=== PATIENT | female | born 1950 | race Caucasian/White ===

== ENCOUNTER 2016-10-03 10:52 | Outpatient (CLI) ==
[2016-10-03 11:12] LABS: BASOPHILS % (AUTO) 0.5 % (0.0-3.0); EOSINOPHILS # (AUTO) 0.1 K/ul (0.0-0.7); EOSINOPHILS % (AUTO) 1.6 % (0.0-7.0); HEMATOCRIT 43.6 % (37.0-47.0); HEMOGLOBIN 13.4 g/dl (12.0-16.0); IMMATURE GRANULOCYTE % (AUTO) 0.3 % (0.0-5.0); LYMPHOCYTES % (AUTO) 32.2 (10.0-50.0); MEAN CORPUSCULAR HEMOGLOBIN 28.2 pg (27.0-31.0); MEAN CORPUSCULAR HGB CONC 30.7 (31.8-35.4); MEAN CORPUSCULAR VOLUME 91.6 fl (81.0-99.0); MONOCYTES # (AUTO) 0.5 K/uL (0.4-2.0); MONOCYTES % (AUTO) 8.2 (0-10); NEUTROPHILS # (AUTO) 3.5 K/ul (2.0-6.9); NEUTROPHILS % (AUTO) 57.2; PLATELET COUNT 327 10^3/uL (140-440); RED BLOOD COUNT 4.76 10^6/ul (4.20-5.40); WHITE BLOOD COUNT 6.11 K/ul (4.6-10.2)
[2016-10-03 11:15] LABS: BILIRUBIN,URINE Negative (NEGATIVE); KETONES,URINE Negative (NEGATIVE); NITRITE,URINE Negative (NEGATIVE); PROTEIN,URINE Negative (NEGATIVE); URINE, BLOOD Negative (NEGATIVE)
[2016-10-03 11:18] LABS: ADD URINE MICROSCOPIC NO; LEUKOCYTE ESTERASE ,URINE NEGATIVE (NEGATIVE)
[2016-10-03 11:30] LABS: ALBUMIN 3.2 g/dL (3.4-5.0); ALBUMIN/GLOBULIN RATIO 0.8; ANION GAP 13.3; BILIRUBIN,TOTAL 0.45 mg/dL (0.00-1.20); BUN/CREATININE RATIO 15.95; CALCIUM 9.5 mg/dL (8.2-10.2); CHOL/HDL RATIO 3.7 (4.5-5.5); CREATININE 0.94 mg/dL (0.60-1.30); POTASSIUM 4.3 mmol/L (3.5-5.10); TOTAL PROTEIN 7.2 g/dL (5.8-8.1)
== END 2016-10-03 10:53 | disposition home or self-care (01) ==
LOC: LAB 10:52
PROVIDERS: ATTEND Family Medicine
DX: I25.10 Atherosclerotic heart disease of native coronary artery without angina pectoris (principal); I50.30 Unspecified diastolic (congestive) heart failure; E78.5 Hyperlipidemia, unspecified; E11.9 Type 2 diabetes mellitus without complications; I10 Essential (primary) hypertension; F32.9 Major depressive disorder, single episode, unspecified; Z79.899 Other long term (current) drug therapy
CPT/HCPCS: 36415; 80053; 80061; 81001; 83036; 85025

== ENCOUNTER 2016-10-27 14:31 | Outpatient (CLI) | payer OTHER ==
[2016-10-27 14:52] LABS: BASOPHILS % (AUTO) 0.2 % (0.0-3.0); EOSINOPHILS # (AUTO) 0.1 K/ul (0.0-0.7); HEMATOCRIT 42.3 % (37.0-47.0); HEMOGLOBIN 13.7 g/dl (12.0-16.0); IMMATURE GRANULOCYTE % (AUTO) 0.3 % (0.0-5.0); LYMPHOCYTES # (AUTO) 1.9 K/uL (0.60-3.4); MEAN CORPUSCULAR HEMOGLOBIN 28.9 pg (27.0-31.0); MEAN CORPUSCULAR HGB CONC 32.4 (31.8-35.4); MEAN CORPUSCULAR VOLUME 89.2 fl (81.0-99.0); MONOCYTES # (AUTO) 0.7 K/uL (0.4-2.0); MONOCYTES % (AUTO) 7.2 (0-10); NEUTROPHILS # (AUTO) 6.7 K/ul (2.0-6.9); NEUTROPHILS % (AUTO) 71.3; PLATELET COUNT 334 10^3/uL (140-440); RED BLOOD COUNT 4.74 10^6/ul (4.20-5.40); WHITE BLOOD COUNT 9.41 K/ul (4.6-10.2)
[2016-10-27 14:54] LABS: BILIRUBIN,URINE Negative (NEGATIVE); KETONES,URINE Negative (NEGATIVE); LEUKOCYTE ESTERASE ,URINE Trace (NEGATIVE); NITRITE,URINE Negative (NEGATIVE); PROTEIN,URINE Negative (NEGATIVE); URINE, BLOOD Negative (NEGATIVE)
[2016-10-27 14:55] LABS: ADD URINE MICROSCOPIC YES
[2016-10-27 15:08] LABS: FLU INTERNAL QC INTERNAL QC VALID
[2016-10-27 15:09] LABS: RAPID FLU A NEGATIVE (NEGATIVE); RAPID FLU B NEGATIVE (NEGATIVE)
--- NOTE | 2016-10-27 15:58 | DI ---
EXAM: CHEST FRONTAL AND LATERAL VIEWS HISTORY: Fatigue. COMPARISON: 11/30/2013 FINDINGS: Heart size remains within normal limits. There is at least mild aortic atherosclerosis. No consolidated pneumonia or vascular congestion. No pneumothorax or pleural fluid. Degenerative changes of the lumbar spine. IMPRESSION: No acute process identified.
--- NOTE | 2016-10-27 16:00 | CT ---
EXAM: CT sinuses/facial bones without contrast HISTORY: Headache with facial pain COMPARISON: None TECHNIQUE: Serial axial images of the facial bones/sinuses were obtained without IV contrast. Thes e were viewed in coronal, sagittal and axial planes. FINDINGS: There is mild mucosal thickening in the dependent portion of the left maxillary sinus. T he remaining paranasal sinuses are clear. There is trace fluid in the right mastoid air cells. The left mastoid air cells are clear. Ostiomeatal units are patent. There is leftward nasal septal de viation with a 0.4 cm leftward nasal septal spur. There is degenerative disease of the cervical spi ne. Soft tissues are unremarkable. IMPRESSION: 1. Mild mucosal thickening in the dependent portion of the left maxillary sinus. 2. Ostiomeatal units are patent with leftward nasal septal deviation and 8.4 cm leftward nasal sept al spur. 3. Degenerative disease of the cervical spine. 4. Trace fluid is noted in the right mastoid air cells.
== END 2016-10-27 14:32 | disposition home or self-care (01) ==
LOC: RAD 14:31
PROVIDERS: ATTEND Family Medicine
DX: R51 Headache (principal); R53.83 Other fatigue; R10.9 Unspecified abdominal pain
CPT/HCPCS: 36415; 81001; 85025; 86140; 87804

== ENCOUNTER 2016-11-02 10:13 | Outpatient (CLI) ==
--- NOTE | 2016-11-02 12:33 | MRI ---
EXAM: MRI left knee without contrast. HISTORY: Left knee pain. Constant. No left knee surgery.. TECHNIQUE: Using a local extremity coil on a high field strength magnet multiplanar multisequence M RI performed of the left knee without intravenous or intra-articular gadolinium contrast. COMPARISON: Four view plain film examination left knee 07/13/2015. FINDINGS: Within the medial compartment there is complex degenerative tear medial meniscus predomin ately involving the anterior posterior horn. Loss of hoop containment with extrusion of the medial meniscal body. There is diffuse chondrosis with cartilage denudation/ulceration throughout the weig htbearing medial compartment. Extensive subchondral bone marrow signal heterogeneity which is well marginated within the weightbearing medial femoral condyle.. Suggestive of intramedullary infarct/a vascular necrosis. Marked productive osteophyte formation. Within the lateral compartment the lateral meniscus is intact without discrete surfacing meniscal te ar. Mild lateral compartment chondrosis. No underlying subchondral edema. Marked productive osteo phyte formation. Within the patellofemoral compartment the patella seated with intact patellar attachment of the medi al and lateral patellar retinaculum. Moderate patellar chondrosis/chondromalacia patella with corre sponding disease along the trochlear groove with areas of cartilage denudation/ulceration. Marked p roductive osteophyte formation. There is patchy subchondral edema /remodeling over the inferior por tions of the trochlear groove. Marked productive osteophyte formation. Large left knee effusion. Question lipoma arborescens. Questionable sprain/partial tearing to the PCL. Question mucoid degeneration anterior cruciate ligament. Intact fibers. Component of sprain/ partial tearing may be present as well. There is however no translation of the tibia with respect t o the femur. The extensor mechanism is intact. Low grade sprain proximal medial collateral ligamen t which overall is bowed medially. The lateral collateral ligament complex intact as is the postero lateral corner. Tiny posterior joint extension.. IMPRESSION: Complex degenerative tear medial meniscus. Loss of hoop containment. Changes of markedly severe tricompartmental osteoarthrosis, medial compartment dominant. 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 Large left effusion. Question lipoma arborescens. Questionable sprain/partial tearing to the PCL. Mucoid degeneration anterior cruciate ligament. In tact fibers. Component of sprain/partial tearing may be present as well. No translation of the tib ia with respect to the femur. Low grade sprain proximal medial collateral ligament.
== END 2016-11-02 10:14 | disposition home or self-care (01) ==
LOC: RAD 10:13
PROVIDERS: ATTEND Family Medicine
DX: M25.562 Pain in left knee (principal)

== ENCOUNTER 2016-12-08 10:15 | Outpatient (RCR) ==
--- NOTE | 2016-12-06 15:04 | RS.OPPTEV2 ---
Date of Note: 12/05/16 Visit #: 1 Date of Evaluation: 12/05/16 Payer Source: MEDICARE Treatment Diagnosis: Bilateral knee Osteoarthritis, knee pain History of Condition/Mechanism of Injury:: Patient reports progressive bilateral knee pain. States left knee is worse than the right. She received an injection in the left knee, which helped for 8-9 hours. States left knee is bone on bone. Prior Level of Function.....Patient was independent with: ADL's, Self Care, Work /Vocation, Caregiving, Ambulation/Mobility, Community Integration/Access Functional Limitations: Sleep, Self Care, ADL's, Pushing, Pulling, Lifting, Sitting, Standing, Bending, Squatting, Ambulation, Community Access/Integration Current Subjective/complaints:: Patient reports she is hoping to avoid knee surgery. She is hoping to get some relief of knee pain with therapy. She does not ever use an assistive device. She reports no trouble with the hips or ankles. Sleep is interrupted at times from knee pain. States she gets stiffness in the knees and increased pain with weight bearing activities. Treatment Side (optional): Bilateral Medical History Medical History: Hypertension, Diabetes, Arthritis (knees and back) Smoking Status: Current every day smoker Hx Home Medications: Does not have list of medications. States she was given lotion/cream to put on legs for pain. Patient's Goals: Her goal is to get some relief of knee pain with therapy, and to avoid surgery. Pain Assessment - Pain Description Pain Location: bilateral knees, left worse than right Pain Description: Tightness, Dull, Aching Current Pain Intensity: 8/10 Worst Pain Intensity: 10/10 Functional Outcome Measure LE Functional Scale: 29 (29/80=63.75% impairment) - G Codes & Severity Modifier G Codes & Modifier: Mobility current CL. Mobility goal CK Source of G Code score: LE functional scale Gait - Gait Pattern General Gait Pattern Observation: Antalgic Gait Gait Comments: Patient ambulates without an assistive device with slightly less stance phase on the left LE compared to the right. - Left Knee ROM Left Knee Extension: -2 from full extension Left Knee Flexion: 112 (degrees AROM) Knee ROM Limitations: Soft Tissue Tightness, Pain - Right Knee ROM Right Knee Extension: full extension Right Knee Flexion: 128 (degrees AROM) Comments: Right knee demonstrates moderate crepitus with ROM. - Left Knee Strength Left Knee Extension: 4+ Good + Left Knee Flexion: 4 Good Comments: Left hip strength 5/5 throughout. - Right Knee Strength Right Knee Extension: 5 Normal Right Knee Flexion: 5 Normal Comments: Right hip generally 4/5 with flexion, abduction, extension, IR, and ER. Palpation Comments:: patient reports no significant tenderness with palpation to either knee joint. Sensation - Sensation Right Lower Extremity: Intact/Normal Left Lower Extremity: Intact/Normal Additional Comments: Additional Comments: SLR bilaterally 50-55 degrees in supine. Interventions - Exercise/Activities/Manual Therapy Exercises/Activities: Patient instructed in HEP of SLR's, pillow squeeze, and SAQ's. Manual Therapy: NA HOME EXERCISE PROGRAM: SLR's, pillow squeeze, and SAQ's - Charges Total Direct Minutes: 45 mins Total Treatment Time: 45 mins Procedures billed for this date of service:: EVAL Assessment Assessment: Patient presents to therapy with diagnosis of bilateral knee Osteoarthritis. She reports knee pain with weight bearing activities. Demonstrates weakness of the right hip and left knee. Right knee presents greater crepitus than the left knee joint. She demonstrates potential to benefit from hip and knee strengthening exercises for bilateral LE's, to gain some relief of knee pain with activity. Patient Education: Education of diagnosis, Body/Joint mechanics, Home Exercise Program, Home Safety, Activity Modification, Education of Plan of Care Rehab Potential: Good Short Term Goals Goal #1: Patient independent and compliant with basic HEP. Goal to be met by: 12/13/16 Goal #2: AROM right knee flexion 118 degrees. Goal to be met by: 12/13/16 [employer] Goals Goal #1: Patient independent in progressive HEP. Goal to be met by: 12/20/16 Plan - Treatment to be Provided Procedures: Therapeutic Exercises, Therapeutic Activity, Patient Education Modalities: No Modalities - Treatment Plan Frequency: 2 X week Duration: 2 weeks ORDER # VISITS AND/OR THROUGH DATE: 12/20/16 - Treatment Code (1) Knee pain Qualifiers: Laterality: bilateral Chronicity: chronic Qualified Description: Chronic pain of both knees Qualifier Code(s): (M25.561) Pain in right knee , (M25.562) Pain in left knee, (G89.29) Other chronic pain (2) Osteoarthritis Qualifiers: Osteoarthritis location: knee Osteoarthritis type: primary Laterality: bilateral Qualified Description: Primary osteoarthritis of both knees Qualifier Code(s): (M17.0) Bilateral primary osteoarthritis of knee
--- NOTE | 2016-12-08 10:59 | RS.OPPTDN ---
Subjective Date of Note: 12/08/16 Visit #: 2 Date of Evaluation: 12/05/16 Payer Source: MEDICARE Treatment Diagnosis: Bilateral knee Osteoarthritis, knee pain Current Subjective/complaints:: Patient reports her knees "pop" alot with walking. Pain Assessment - Pain Description Pain Location: bilateral knees, left worse than right Pain Description: Tightness, Dull, Aching Current Pain Intensity: 7-8 with standing Other Comments regarding Pain:: Much less when off her feet. Interventions - Exercise/Activities/Manual Therapy Exercises/Activities: 40 mins. total,HEP of ankle pumps,quad sets,heelslides, hip abd/adduction,SAQ's, SLR's,3/10 -15 reps. each today. Total minutes of Exercise: 40 Manual Therapy: NA Total minutes of Manual Therapy: 0 HOME EXERCISE PROGRAM: SLR's,SAQ's, pillow squeeze, and SAQ's,hip abd /add, heelslides. - Charges Total Direct Minutes: 40 Total Treatment Time: 40 Procedures billed for this date of service:: ex 3 Assessment: Patient reports her knees actually feel better while doing exercises today.She has crepitus present with heelslides and SAQ's.She needs cues to control the speed of movement ,especially with SLR's. Patient Education: Education of diagnosis, Body/Joint mechanics, Home Exercise Program, Home Safety, Activity Modification, Education of Plan of Care Patient demonstrates compliance with HEP?: Yes Short Term Goals Goal #1: Patient independent and compliant with basic HEP. Goal to be met by: 12/13/16 Progress towards Goal:: Progressing Goal #2: AROM right knee flexion 118 degrees. Goal to be met by: 12/13/16 Progress towards Goal:: Progressing Half-Way Goals Goal #1: Patient independent in progressive HEP. Goal to be met by: 12/20/16 Plan PLAN OF CARE EXPIRES ON:: 12/20/16 ORDER # VISITS AND/OR THROUGH DATE: 12/20/16 PLAN: Continue Plan of Care
--- NOTE | 2016-12-21 16:45 | RS.CSNOTE ---
PT Case Note Date of Note: 12/20/16 Title of document: Case Note Note: S--Patient reports her R knee does not pop or hurt any longer. She c/o L knee pain at the distal patella and at the joint line and continues to pop mostly with ambulation. She says the L knee pain is constant, but also increases with activity level. She says she has performed HEP and feels it has helped, but also believes she will be scheduled for TKR soon. She mentions she would like to hold off until summer so that she is off from work. O--Patient was seen to review HEP and progress original with tbands and to standing therex. We went through all and performed correctly and with only general muscle fatigue. SLR was modified to only 5 reps, 2 sets due to such fatigue. Measurements taken. A--Patient's L knee Actively is 119 degrees, 121 passive and limited by pain. R knee is 127 Actively, no pain. Both knees are ~-3 to - 4 degrees. P--Patient's dates are expiring today and no further treatment was ordered by MD. She attended eval and 2 visits counting today. She was encouraged to continue performing HEP 2-3 times per day and follow up with MD at her scheduled appt. Gcodes remained unchanged. Score 29/80 or ~64% impairment as she has improved on the R knee, but score contains both knees. Charges this date is EX-1
--- NOTE | 2017-01-20 14:35 | RS.QUICKDC ---
Discharge from PT Date of Discharge: 12/20/16 Number of Visits: 3 Reason for Discharge: Patient reports her R knee does not pop or hurt any longer. She c/o L knee pain at the distal patella and at the joint line and continues to pop mostly with ambulation. She says the L knee pain is constant, but also increases with activity level. She says she has performed HEP and feels it has helped, but also believes she will be scheduled for TKR soon. She mentions she would like to hold off until summer so that she is off from work. Patient was seen to review HEP and progress original with tbands and to standing therex. We went through all and performed correctly and with only general muscle fatigue. SLR was modified to only 5 reps, 2 sets due to such fatigue. Patient's L knee Actively is 119 degrees, 121 passive and limited by pain. R knee is 127 Actively, no pain. Both knees are ~-3 to -4 degrees. Patient's dates are expiring today and no further treatment was ordered by MD. She attended eval and 2 visits counting today. She was encouraged to continue performing HEP 2-3 times per day and follow up with MD at her scheduled appt. Gcodes remained unchanged. Score 29/80 or ~64% impairment as she has improved on the R knee, but score contains both knees. G codes: Mobility goal CK, Mobility D/C CL
== END 2016-12-30 ==
PROVIDERS: ATTEND Orthopaedic Surgery
DX: M17.11 Unilateral primary osteoarthritis, right knee (principal); M17.12 Unilateral primary osteoarthritis, left knee

== ENCOUNTER 2017-01-02 09:57 | Outpatient (CLI) ==
--- NOTE | 2017-01-04 07:27 | MAMMO ---
EXAM: Digital screening mammogram HISTORY: Screening mammogram COMPARISON: Mammogram 07/12/2011 and 07/19/2013 FINDINGS: Bilateral CC and MLO views of the breasts were performed digitally and demonstrate scatte red fibroglandular breast density (25 - 50%). There is no abnormal nodule or calcification. Stable b enign bilateral calcifications are present. There are stable bilateral breast nodules unchanged sin 2010. There is no significant interval change. IMPRESSION: That no suspicious nodule or calcification RECOMMENDATION: Annual screening mammogram BIRADS category II: Benign findings
== END 2017-01-02 09:58 | disposition home or self-care (01) ==
LOC: RAD 09:57
PROVIDERS: ATTEND Family Medicine
DX: Z12.31 Encounter for screening mammogram for malignant neoplasm of breast (principal)

== ENCOUNTER 2017-02-08 00:01 | Outpatient (POV) | END 2017-02-08 00:02 | LOC: OUTPT 00:01 | PROVIDERS: ATTEND Otolaryngology | DX: H72.91 Unspecified perforation of tympanic membrane, right ear (principal); H91.91 Unspecified hearing loss, right ear | CPT/HCPCS: 92557; 92567 ==

== ENCOUNTER 2017-03-30 13:54 | Outpatient (CLI) ==
--- NOTE | 2017-03-30 15:22 | US ---
EXAM: Renal ultrasound HISTORY: Stage III chronic kidney disease. TECHNIQUE: Zhou scale and color Doppler imaging of the kidneys was performed. FINDINGS: The right kidney measures 9 cm in length. There is no hydronephrosis. The renal parench ymal echotexture appears normal. The left kidney measures 9.0 cm in length. There is no hydronephrosis. The renal parenchymal echote xture appears normal. There is a small cyst seen within the left kidney measuring 5 mm. The urinary bladder was not well seen within the pelvis. IMPRESSION: There is no obstructive uropathy.
== END 2017-03-30 13:55 | disposition home or self-care (01) ==
LOC: RAD 13:54
PROVIDERS: ATTEND Internal Medicine Nephrology
DX: N18.3 Chronic kidney disease, stage 3 (moderate) (principal)
CPT/HCPCS: 76770

== ENCOUNTER → 2017-05-01 | Outpatient (RCR) ==
--- NOTE | 2017-04-25 08:46 | RS.OPPTEV2 ---
Date of Note: 04/24/17 Visit #: 1 Date of Evaluation: 04/24/17 Payer Source: MEDICARE Surgery Performed?: Yes (Left TKA) Date of Procedure: 04/18/17 Treatment Diagnosis: Left knee pain, left knee joint stiffness, s/p left TKA History of Condition/Mechanism of Injury:: Patient reports progressive left knee pain from osteoarthritis led to a TKA. Prior Level of Function.....Patient was independent with: ADL's, Self Care, Work /Vocation, Caregiving, Ambulation/Mobility, Community Integration/Access Functional Limitations: Sleep, Self Care, ADL's, Reaching, Pushing, Pulling, Lifting, Carrying, Sitting, Standing, Bending, Squatting, Ambulation, Community Access/Integration Current Subjective/complaints:: Patient reports staying in the hospital three nights following her surgery. Reports pain has not been as bad as she expected. States she has been icing the knee consistently and wear compression hose at night. She has been taking her pain medication as prescribed. She took it 30 minutes before her appointment. Reports doing well at home. She has not had any falls at home. States she has one step to get onto the front porch and always has someone to help her get up the step. She has a HEP from the hospital that she has been working on. States she uses pillows at home in bed to keep the left leg from turning out. She reports that she has been changing her dressing. Her daughter lives with her and helps her with all selfcare and ADL's. Patient states she had some trouble with her oxygen level while at the hospital. She was sent home with oxygen. Treatment Side (optional): Left Medical History Medical History: Hypertension, Diabetes, Arthritis (knees and back) Smoking Status: Current every day smoker Hx Home Medications: Does not have list of medications. States she was given lotion/cream to put on legs for pain. Pain Assessment - Pain Description Pain Location: bilateral knees, left worse than right Current Pain Intensity: 7-8 with standing Functional Outcome Measure LE Functional Scale: 0 (0/03=707% impairment) - G Codes & Severity Modifier G Codes & Modifier: Mobility current CM. Mobility goal CJ Source of G Code score: G codes based on presentation in the department. She scored the LE functional scale 0/80, but presents to be more at the 80-99% functional level. Observation - Observation Inspection: Left knee presents a light dressing over her incision. Incision is 6 inches in length and is clean and free of drainage. Appears to have been closed with dermabond and probably internal stitches. Girth Measurement Lower: Left LE: Malleoli 25 cm, inferior incision 39.25 cm, superior incision 48 cm Gait - Gait Pattern Gait Comments: Patient ambulates with a rolling walker with supervision. She demonstrates decreased left knee flexion during swing phase. Exhibits decreased stance time on the left LE and decreased stride length. Also demonstrates minimal heelstrike on the left LE. - Left Knee ROM Left Knee Extension: -3 degrees from full extension Left Knee Flexion: 73 (degrees AROM) Knee ROM Limitations: Soft Tissue Tightness, Pain - Right Knee ROM Right Knee Extension: full extension Right Knee Flexion: 128 (degrees AROM) - Left Knee Strength Left Knee Extension: 4 Good Left Knee Flexion: 4 Good - Right Knee Strength Right Knee Extension: 4+ Good + Right Knee Flexion: 4+ Good + Palpation Comments:: Sensation to light touch and deep pressure slightly impaired to bilateral lower legs and feet. Sensation - Sensation Right Lower Extremity: Intact/Normal Left Lower Extremity: Intact/Normal - Heat/Cryotherapy Treatment: Cryotherapy (X 10 mins following evaluation) Interventions - Exercise/Activities/Manual Therapy Exercises/Activities: Patient given handout of exercises for TKA and given instructions for homemade ice packs. Advised to continue icing the knee consistently to reduce swelling and help manage her pain. Manual Therapy: NA HOME EXERCISE PROGRAM: AP's, quad sets, heel slides, standing HS curls, SAQ's. - Charges Total Direct Minutes: 55 mins Total Treatment Time: 55 mins Procedures billed for this date of service:: KATIA REN Assessment Assessment: Patient presents to therapy with a diagnosis of Primary OA of the left knee, knee pain. She presents six days s/p left TKA. She reports limited ability to perform selfcare, ADL's, drive, or ambulate. Her daughter is currently having to help her with daily care/activities. She presents with limited functional left knee AROM and strength. She will benefit from exercises and modalities to reduce her swelling and pain, and help her regain functional AROM to return to her prior level of function. Patient Education: Education of diagnosis, Body/Joint mechanics, Home Exercise Program, Home Safety, Activity Modification, Education of Plan of Care Rehab Potential: Good Short Term Goals Goal #1: Patient independent and compliant with initial HEP. Goal to be met by: 05/08/17 Goal #2: Left knee active flexion to 90 degrees. Goal to be met by: 05/08/17 Goal #3: Left knee to demonstrate good quad control. Goal to be met by: 05/08/17 Goal #4: Pt to demonstrate good heelstrike consistently with amb. in department. Goal to be met by: 05/08/17 Skilled Nursing Goals Goal #1: Pt knows HEP and to continue ex's to maintain functional level at D/C. Goal to be met by: 06/13/17 Goal #2: Score on LE functional scale <39% impaired. Goal to be met by: 06/13/17 Goal #3: Pt able to amb. community distances w/o a device and min. gait deviations. Goal to be met by: 06/13/17 Goal #4: Left knee AROM WFL's for patient to perform all selfcare/ADL's. Goal to be met by: 06/13/17 Plan - Treatment to be Provided Procedures: Therapeutic Exercises, Therapeutic Activity, Gait Training, Patient Education Modalities: Electrical Stimulation, Cryotherapy - Treatment Plan Frequency: 3 X week Duration: 6 weeks ORDER # VISITS AND/OR THROUGH DATE: 06/13/17 - Treatment Code (1) Knee stiffness Qualifiers: Laterality: left Qualified Description: Knee stiffness, left Qualifier Code(s): (M25.662) Stiffness of left knee, not elsewhere classified (2) Knee pain Qualifiers: Chronicity: acute Laterality: left Qualified Description: Acute pain of left knee Qualifier Code(s): (M25.562) Pain in left knee (3) Aftercare following joint replacement surgery Qualifiers: Joint replacement surgery site: knee Laterality: left Qualified Description: Aftercare following left knee joint replacement surgery Qualifier Code(s): (Z47.1) Aftercare following joint replacement surgery, ( Z96.652) Presence of left artificial knee joint
--- NOTE | 2017-04-26 16:12 | RS.OPPTDN ---
Subjective Date of Note: 04/26/17 Visit #: 2 Date of Evaluation: 04/24/17 Payer Source: MEDICARE Treatment Diagnosis: Left knee pain, left knee joint stiffness, s/p left TKA Current Subjective/complaints:: Patient reports working on he HEP as instructed. States she is using ice for swelling. Pain Assessment - Pain Description Pain Location: bilateral knees, left worse than right Current Pain Intensity: moderate - Treatment Modality: Electrical Stim Unattended Parameters/Method Applied: [id number] HVGC to 190p.v. with 4 large pads cross current to the left knee joint with CP prior to EX. Patient Position: Supine - Heat/Cryotherapy Treatment: Cryotherapy ([id number] with Estim ) Interventions - Exercise/Activities/Manual Therapy Exercises/Activities: QS, ham sets, heel slides, and SLR, all 2s/10reps. Red theraband for resistive ankle df, 3s/10reps. Isometric hip add with ball. PROM left knee flexion and extension. In sitting, alt hip flexion and LAQ. Sitting on high mat table, PROM left knee flexion and extension. Red theraband for resistive ham curl 3s/10reps. Isometric knee flexion and extension. Total minutes of Exercise: 30mins Manual Therapy: NA HOME EXERCISE PROGRAM: AP's, quad sets, heel slides, standing HS curls, SAQ's. SLR. Heel slides in sitting with passive stretching. - Objective Findings Observations,measurements,etc.: Demos improved quad control with quad sets. - Charges Total Direct Minutes: 30mins Total Treatment Time: 50mins Procedures billed for this date of service:: CP, Estim unattended, EX2 Assessment: Patient tolerates increase in mat exercise today. She is motivated to work on HEP and progress. Patient Education: Body/Joint mechanics, Home Exercise Program, Home Safety, Activity Modification Patient demonstrates compliance with HEP?: Yes Short Term Goals Goal #1: Patient independent and compliant with initial HEP. Goal to be met by: 05/08/17 Progress towards Goal:: Progressing Goal #2: Left knee active flexion to 90 degrees. Goal to be met by: 05/08/17 Progress towards Goal:: Progressing Comments:: Passive to 90 degrees or slightly better. Goal #3: Left knee to demonstrate good quad control. Goal to be met by: 05/08/17 Progress towards Goal:: Progressing Goal #4: Pt to demonstrate good heelstrike consistently with amb. in department. Goal to be met by: 05/08/17 Senior Information Security Engineer Goals Goal #1: Pt knows HEP and to continue ex's to maintain functional level at D/C. Goal to be met by: 06/13/17 Goal #2: Score on LE functional scale <39% impaired. Goal to be met by: 06/13/17 Goal #3: Pt able to amb. community distances w/o a device and min. gait deviations. Goal to be met by: 06/13/17 Goal #4: Left knee AROM WFL's for patient to perform all selfcare/ADL's. Goal to be met by: 06/13/17 Plan PLAN OF CARE EXPIRES ON:: 06/13/17 ORDER # VISITS AND/OR THROUGH DATE: 06/13/17 PLAN: Continue Plan of Care (Continue modalites and exericse to reduce pain and swelling, and increase functional activity level.)
--- NOTE | 2017-04-28 15:56 | RS.OPPTDN ---
Subjective Date of Note: 04/28/17 Visit #: 3 Date of Evaluation: 04/24/17 Payer Source: MEDICARE Treatment Diagnosis: Left knee pain, left knee joint stiffness, s/p left TKA Current Subjective/complaints:: Patient reports doing better each day. States she is working on HEP. Pain Assessment - Pain Description Pain Location: bilateral knees, left worse than right Current Pain Intensity: moderate - Treatment Modality: Electrical Stim Unattended Parameters/Method Applied: [id number] HVGC to 200p.v. to the left knee joint 4 pad cross current with cold pack prior to EX. Patient in supine. Patient Position: Supine - Heat/Cryotherapy Treatment: Cryotherapy ([id number] with Estim ) Interventions - Exercise/Activities/Manual Therapy Exercises/Activities: QS, ham sets, heel slides, and SLR, all 2s/10reps. Red theraband for resistive ankle df and ham curl, 2s/10reps. Isometric hip add with ball. PROM left knee flexion and extension. In sitting, alt hip flexion and LAQ. Sitting on high mat table, PROM left knee flexion and extension. Red theraband for resistive ham curl and knee extension, 3s/10reps each. Isometric knee flexion and extension. Total minutes of Exercise: 30mins Manual Therapy: NA HOME EXERCISE PROGRAM: AP's, quad sets, heel slides, standing HS curls, SAQ's. SLR. Heel slides in sitting with passive stretching. - Objective Findings Observations,measurements,etc.: Patient demos full active left knee extension and passive left knee flexion to 99 degrees. - Charges Total Direct Minutes: 30mins Total Treatment Time: 50mins Procedures billed for this date of service:: CP, Estim unattended, EX2 Assessment: Patient progressing well with ROM and with strengthening exercises. Patient Education: Body/Joint mechanics, Home Exercise Program Patient demonstrates compliance with HEP?: Yes Short Term Goals Goal #1: Patient independent and compliant with initial HEP. Goal to be met by: 05/08/17 Progress towards Goal:: Progressing Goal #2: Left knee active flexion to 90 degrees. Goal to be met by: 05/08/17 (100%) Progress towards Goal:: Met Goal #3: Left knee to demonstrate good quad control. Goal to be met by: 05/08/17 (50%) Progress towards Goal:: Progressing Goal #4: Pt to demonstrate good heelstrike consistently with amb. in department. Goal to be met by: 05/08/17 Progress towards Goal:: Progressing Gas Operations Superintendent Goals Goal #1: Pt knows HEP and to continue ex's to maintain functional level at D/C. Goal to be met by: 06/13/17 Goal #2: Score on LE functional scale <39% impaired. Goal to be met by: 06/13/17 Goal #3: Pt able to amb. community distances w/o a device and min. gait deviations. Goal to be met by: 06/13/17 Goal #4: Left knee AROM WFL's for patient to perform all selfcare/ADL's. Goal to be met by: 06/13/17 Plan PLAN OF CARE EXPIRES ON:: 06/13/17 ORDER # VISITS AND/OR THROUGH DATE: 06/13/17 PLAN: Continue Plan of Care (Continue modalities and progress exercise to reduce pain and increase functional activity level.)
--- NOTE | 2017-05-01 15:36 | RS.OPPTDN ---
Subjective Date of Note: 05/01/17 Visit #: 4 Date of Evaluation: 04/24/17 Payer Source: MEDICARE Treatment Diagnosis: Left knee pain, left knee joint stiffness, s/p left TKA Current Subjective/complaints:: Patient reports she is consistently working on HEP, and feels her ROM and walking are better. Pain Assessment - Pain Description Pain Location: bilateral knees, left worse than right Current Pain Intensity: moderate - Treatment Modality: Electrical Stim Unattended Parameters/Method Applied: [id number] HVGC to 200p.v. 4 large pads cross current to the left knee with CP prior to EX. Patient Position: Supine - Heat/Cryotherapy Treatment: Cryotherapy ([id number] with Estim ) Interventions - Exercise/Activities/Manual Therapy Exercises/Activities: QS, ham sets, heel slides, and SLR, all 2s/10reps. Red theraband for resistive ankle df and ham curl, 2s/10reps. Isometric hip add with ball. PROM left knee flexion and extension. Assisted patient onto stationary bike and progressed to full revolutions. Total minutes of Exercise: 24mins Manual Therapy: NA HOME EXERCISE PROGRAM: AP's, quad sets, heel slides, standing HS curls, SAQ's. SLR. Heel slides in sitting with passive stretching. - Charges Total Direct Minutes: 24mins Total Treatment Time: 44mins Procedures billed for this date of service:: CP, Estim unattended, EX2 Assessment: Patient progressing with ROM and with strengthening exercises. Patient Education: Home Exercise Program Patient demonstrates compliance with HEP?: Yes Short Term Goals Goal #1: Patient independent and compliant with initial HEP. Goal to be met by: 05/08/17 Progress towards Goal:: Progressing Goal #2: Left knee active flexion to 90 degrees. Goal to be met by: 05/08/17 (100%) Progress towards Goal:: Met Goal #3: Left knee to demonstrate good quad control. Goal to be met by: 05/08/17 (70%) Progress towards Goal:: Progressing Goal #4: Pt to demonstrate good heelstrike consistently with amb. in department. Goal to be met by: 05/08/17 (50%) Progress towards Goal:: Progressing Crude Oil Treater Goals Goal #1: Pt knows HEP and to continue ex's to maintain functional level at D/C. Goal to be met by: 06/13/17 Goal #2: Score on LE functional scale <39% impaired. Goal to be met by: 06/13/17 Goal #3: Pt able to amb. community distances w/o a device and min. gait deviations. Goal to be met by: 06/13/17 Goal #4: Left knee AROM WFL's for patient to perform all selfcare/ADL's. Goal to be met by: 06/13/17 Plan PLAN OF CARE EXPIRES ON:: 06/13/17 ORDER # VISITS AND/OR THROUGH DATE: 06/13/17 PLAN: Continue Plan of Care
== END ==
PROVIDERS: ATTEND Orthopaedic Surgery
DX: M17.12 Unilateral primary osteoarthritis, left knee (principal)

== ENCOUNTER 2017-05-23 11:00 | Outpatient (RCR) ==
--- NOTE | 2017-05-03 15:54 | RS.OPPTDN ---
Subjective Date of Note: 05/03/17 Visit #: 5 Date of Evaluation: 04/24/17 Payer Source: MEDICARE Treatment Diagnosis: Left knee pain, left knee joint stiffness, s/p left TKA Current Subjective/complaints:: Patient reports doing better each day. States she continues to walk with RW for safety in the community. Pain Assessment - Pain Description Pain Location: bilateral knees, left worse than right Current Pain Intensity: moderate - Treatment Modality: Electrical Stim Unattended Parameters/Method Applied: [id number] HVGC to 160p.v. with 4 large pads, cross current, to the left knee joint with CP prior to EX. Patient Position: Supine - Heat/Cryotherapy Treatment: Cryotherapy ([id number] with Estim ) Interventions - Exercise/Activities/Manual Therapy Exercises/Activities: QS, ham sets, heel slides, and SLR, all 3s/10reps. Green theraband for resistive ankle df and ham curl, 2s/10reps. SAQ 3#. Isometric hip add with ball. PROM left knee flexion and extension. In sitting, green theraband for resistive knee flexion and extension. Isometric knee flexion and extension. Assisted patient onto stationary bike and progressed to full revolutions. Total minutes of Exercise: 30mins (35mins) Manual Therapy: NA HOME EXERCISE PROGRAM: AP's, quad sets, heel slides, standing HS curls, SAQ's. SLR. Heel slides in sitting with passive stretching. - Charges Total Direct Minutes: 30mins Total Treatment Time: 55mins Procedures billed for this date of service:: CP, Estim unattended, EX2 Assessment: Patient progressing well with strength and ROM. Patient Education: Home Exercise Program Patient demonstrates compliance with HEP?: Yes Short Term Goals Goal #1: Patient independent and compliant with initial HEP. Goal to be met by: 05/08/17 Progress towards Goal:: Met Goal #2: Left knee active flexion to 90 degrees. Goal to be met by: 05/08/17 (100%) Progress towards Goal:: Met Goal #3: Left knee to demonstrate good quad control. Goal to be met by: 05/08/17 (70%) Progress towards Goal:: Progressing Goal #4: Pt to demonstrate good heelstrike consistently with amb. in department. Goal to be met by: 05/08/17 (50%) Progress towards Goal:: Progressing Wood Treating Inspector Goals Goal #1: Pt knows HEP and to continue ex's to maintain functional level at D/C. Goal to be met by: 06/13/17 Goal #2: Score on LE functional scale <39% impaired. Goal to be met by: 06/13/17 Goal #3: Pt able to amb. community distances w/o a device and min. gait deviations. Goal to be met by: 06/13/17 Goal #4: Left knee AROM WFL's for patient to perform all selfcare/ADL's. Goal to be met by: 06/13/17 Plan PLAN OF CARE EXPIRES ON:: 06/13/17 ORDER # VISITS AND/OR THROUGH DATE: 06/13/17 PLAN: Continue Plan of Care
--- NOTE | 2017-05-05 15:43 | RS.OPPTDN ---
Subjective Date of Note: 05/05/17 Visit #: 6 Date of Evaluation: 04/24/17 Payer Source: MEDICARE Treatment Diagnosis: Left knee pain, left knee joint stiffness, s/p left TKA Current Subjective/complaints:: Patient reports doing better . States she is walking around her home without AD, and uses RW in community. Pain Assessment - Pain Description Pain Location: bilateral knees, left worse than right Current Pain Intensity: moderate - Treatment Modality: Electrical Stim Unattended Parameters/Method Applied: [id number] HVGC to 200p.v. with 4 large pads with CP to the left knee prior to EX. Patient Position: Supine - Heat/Cryotherapy Treatment: Cryotherapy ([id number] with Estim ) Interventions - Exercise/Activities/Manual Therapy Exercises/Activities: QS, ham sets, heel slides, and SLR, all 3s/10reps. Green theraband for resistive ankle df and ham curl, 2s/10reps. SAQ 3#. Isometric hip add with ball. PROM left knee flexion and extension. Red theraband for hip add and abd in hook-lying. In sitting, green theraband for resistive knee flexion and extension. Isometric knee flexion and extension. Assisted patient onto stationary bike and progressed to full revolutions, 4mins not included in direct time. Total minutes of Exercise: 25mins Manual Therapy: NA HOME EXERCISE PROGRAM: AP's, quad sets, heel slides, standing HS curls, SAQ's. SLR. Heel slides in sitting with passive stretching. - Objective Findings Observations,measurements,etc.: Na benitez 107 degrees flexion while on stationary bike. - Charges Total Direct Minutes: 29mins Total Treatment Time: 49mins Procedures billed for this date of service:: CP, Estim unattended, EX2 Assessment: Patient progressing well with exercise, ambulation, and ROM of the left knee. Patient Education: Home Exercise Program, Home Safety, Activity Modification Patient demonstrates compliance with HEP?: Yes Short Term Goals Goal #1: Patient independent and compliant with initial HEP. Goal to be met by: 05/08/17 Progress towards Goal:: Met Goal #2: Left knee active flexion to 90 degrees. Goal to be met by: 05/08/17 (100%) Progress towards Goal:: Met Goal #3: Left knee to demonstrate good quad control. Goal to be met by: 05/08/17 (70%) Progress towards Goal:: Progressing Goal #4: Pt to demonstrate good heelstrike consistently with amb. in department. Goal to be met by: 05/08/17 (70%) Progress towards Goal:: Progressing Fpc Goals Goal #1: Pt knows HEP and to continue ex's to maintain functional level at D/C. Goal to be met by: 06/13/17 Goal #2: Score on LE functional scale <39% impaired. Goal to be met by: 06/13/17 Goal #3: Pt able to amb. community distances w/o a device and min. gait deviations. Goal to be met by: 06/13/17 Progress towards goal: Progressing Goal #4: Left knee AROM WFL's for patient to perform all selfcare/ADL's. Goal to be met by: 06/13/17 Plan PLAN OF CARE EXPIRES ON:: 06/13/17 ORDER # VISITS AND/OR THROUGH DATE: 06/13/17 PLAN: Continue Plan of Care
--- NOTE | 2017-05-08 16:01 | RS.OPPTDN ---
Subjective Date of Note: 05/08/17 Visit #: 7 Date of Evaluation: 04/24/17 Payer Source: MEDICARE Treatment Diagnosis: Left knee pain, left knee joint stiffness, s/p left TKA Current Subjective/complaints:: Patient reports trying to progress to cane. States she had some increased swelling this morning, but she feels she is progressing well. Pain Assessment - Pain Description Pain Location: bilateral knees, left worse than right Current Pain Intensity: moderate - Treatment Modality: Electrical Stim Unattended Parameters/Method Applied: [id number] HVGC to 200p.v. with 4 large pads to the left knee with CP prior to EX. Patient Position: Supine - Heat/Cryotherapy Treatment: Cryotherapy ([id number] with Estim ) Interventions - Exercise/Activities/Manual Therapy Exercises/Activities: QS, ham sets, heel slides, and SLR, all 3s/10reps. Green theraband for resistive ankle df and ham curl, 2s/10reps. SAQ 4#. Isometric hip add with ball. PROM left knee flexion and extension. Green theraband for hip add and abd in hook-lying. Red theraband for hip add and abd with knee in full extension. In sitting, green theraband for resistive knee flexion and extension. Isometric knee flexion and extension. Stationary bike x4mins forward and 1min backward, not included in direct time. Total minutes of Exercise: 25mins Manual Therapy: NA HOME EXERCISE PROGRAM: AP's, quad sets, heel slides, standing HS curls, SAQ's. SLR. Heel slides in sitting with passive stretching. - Charges Total Direct Minutes: 25mins Total Treatment Time: 50mins Procedures billed for this date of service:: CP, Estim unattended, EX2 Assessment: Patient proressing well with ambulation and with exercise. Patient Education: Home Exercise Program, Home Safety, Activity Modification Patient demonstrates compliance with HEP?: Yes Short Term Goals Goal #1: Patient independent and compliant with initial HEP. Goal to be met by: 05/08/17 Progress towards Goal:: Met Goal #2: Left knee active flexion to 90 degrees. Goal to be met by: 05/08/17 (100%) Progress towards Goal:: Met Goal #3: Left knee to demonstrate good quad control. Goal to be met by: 05/08/17 (70%) Progress towards Goal:: Progressing Goal #4: Pt to demonstrate good heelstrike consistently with amb. in department. Goal to be met by: 05/08/17 (70%) Progress towards Goal:: Progressing Fdc Goals Goal #1: Pt knows HEP and to continue ex's to maintain functional level at D/C. Goal to be met by: 06/13/17 Goal #2: Score on LE functional scale <39% impaired. Goal to be met by: 06/13/17 Goal #3: Pt able to amb. community distances w/o a device and min. gait deviations. Goal to be met by: 06/13/17 Progress towards goal: Progressing Goal #4: Left knee AROM WFL's for patient to perform all selfcare/ADL's. Goal to be met by: 06/13/17 Plan PLAN OF CARE EXPIRES ON:: 06/13/17 ORDER # VISITS AND/OR THROUGH DATE: 06/13/17 PLAN: Progress Exercises
--- NOTE | 2017-05-10 16:07 | RS.OPPTDN ---
Subjective Date of Note: 05/10/17 Visit #: 8 Date of Evaluation: 04/24/17 Payer Source: MEDICARE Treatment Diagnosis: Left knee pain, left knee joint stiffness, s/p left TKA Current Subjective/complaints:: Patient reports continued improvement in walking. States she continues to work on light activities at home, as she has recently moved. States she takes frequent breaks. She is now using cane when going out in the community. Pain Assessment - Pain Description Pain Location: bilateral knees, left worse than right Current Pain Intensity: moderate Interventions - Exercise/Activities/Manual Therapy Exercises/Activities: Stationary bike x3mins, not included in direct time. QS, ham sets, heel slides, SLR, and hip abduction, all 2s/10reps. Green theraband for resistive ankle df and ham curl, 2s/10reps. SAQ 4#. Isometric hip add with ball. PROM left knee flexion and extension. Green theraband for hip add and abd in hook-lying. Red theraband for hip add and abd with knee in full extension. In sitting, green theraband for resistive knee flexion and extension. Isometric knee flexion and extension. Leg press 30#, 30reps at slow pace. Total minutes of Exercise: 40mins Manual Therapy: NA HOME EXERCISE PROGRAM: AP's, quad sets, heel slides, standing HS curls, SAQ's. SLR. Heel slides in sitting with passive stretching. - Objective Findings Observations,measurements,etc.: Patient demos 114 degrees passive left knee flexion in sitting. - Charges Total Direct Minutes: 40mins Total Treatment Time: 43mins Procedures billed for this date of service:: EX3 Assessment: Patient progressing with ROM. Patient Education: Home Exercise Program Patient demonstrates compliance with HEP?: Yes Short Term Goals Goal #1: Patient independent and compliant with initial HEP. Goal to be met by: 05/08/17 Progress towards Goal:: Met Goal #2: Left knee active flexion to 90 degrees. Goal to be met by: 05/08/17 (100%) Progress towards Goal:: Met Goal #3: Left knee to demonstrate good quad control. Goal to be met by: 05/08/17 (80%) Progress towards Goal:: Progressing Goal #4: Pt to demonstrate good heelstrike consistently with amb. in department. Goal to be met by: 05/08/17 (70%) Progress towards Goal:: Progressing Solar Sales Ambassador Goals Goal #1: Pt knows HEP and to continue ex's to maintain functional level at D/C. Goal to be met by: 06/13/17 Progress towards goal: Progressing Goal #2: Score on LE functional scale <39% impaired. Goal to be met by: 06/13/17 Goal #3: Pt able to amb. community distances w/o a device and min. gait deviations. Goal to be met by: 06/13/17 (50%) Progress towards goal: Progressing Goal #4: Left knee AROM WFL's for patient to perform all selfcare/ADL's. Goal to be met by: 06/13/17 Plan PLAN OF CARE EXPIRES ON:: 06/13/17 ORDER # VISITS AND/OR THROUGH DATE: 06/13/17 PLAN: Continue Plan of Care
--- NOTE | 2017-05-12 14:53 | RS.OPPTDN ---
Subjective Date of Note: 05/12/17 Visit #: 9 Date of Evaluation: 04/24/17 Payer Source: MEDICARE Treatment Diagnosis: Left knee pain, left knee joint stiffness, s/p left TKA Current Subjective/complaints:: Patient states her appointment with physician has been moved up to the 15th. She reports she is progressing well and may be able to return to work. Reports she is only using cane in the community, and walking independently in her home. Pain Assessment - Pain Description Pain Location: bilateral knees, left worse than right Current Pain Intensity: mild Interventions - Exercise/Activities/Manual Therapy Exercises/Activities: QS, ham sets, heel slides, all 2s/10reps. SLR and hip abd with 2#, 2s/10reps each. Green theraband for resistive ankle df and ham curl, 3s /10reps. SAQ 4#, 3s/10reps. Isometric hip add with ball. 3 point quads, 15reps. PROM left knee flexion and extension. Green theraband for hip add and abd in hook-lying 2s/10reps each. Green theraband for hip add and abd with knee in full extension, 10reps each. In sitting, green theraband for resistive knee flexion, 2# LAQ, and 2# hip flexion, all 2s/10reps. Stationary bike 4mins(not included in direct time). Leg press 45#, 30reps at slow pace. Worked on step- ups and step-downs at 12" step, as patient works as a school clerk. Total minutes of Exercise: 40mins Manual Therapy: NA HOME EXERCISE PROGRAM: AP's, quad sets, heel slides, standing HS curls, SAQ's. SLR. Heel slides in sitting with passive stretching. - Charges Total Direct Minutes: 40mins Total Treatment Time: 44mins Procedures billed for this date of service:: EX3 Assessment: Patient progressing well with strengthening and with ambulation. She feels like she may be released to return to work and should be able to perform most light activities. Patient Education: Home Exercise Program Patient demonstrates compliance with HEP?: Yes Short Term Goals Goal #1: Patient independent and compliant with initial HEP. Goal to be met by: 05/08/17 Progress towards Goal:: Met Goal #2: Left knee active flexion to 90 degrees. Goal to be met by: 05/08/17 (100%) Progress towards Goal:: Met Goal #3: Left knee to demonstrate good quad control. Goal to be met by: 05/08/17 (100%) Progress towards Goal:: Met Goal #4: Pt to demonstrate good heelstrike consistently with amb. in department. Goal to be met by: 05/08/17 (80%) Progress towards Goal:: Progressing Senior Living Goals Goal #1: Pt knows HEP and to continue ex's to maintain functional level at D/C. Goal to be met by: 06/13/17 Progress towards goal: Progressing Goal #2: Score on LE functional scale <39% impaired. Goal to be met by: 06/13/17 Goal #3: Pt able to amb. community distances w/o a device and min. gait deviations. Goal to be met by: 06/13/17 (75%) Progress towards goal: Progressing Goal #4: Left knee AROM WFL's for patient to perform all selfcare/ADL's. Goal to be met by: 06/13/17 (75%) Progress towards goal: Progressing Plan PLAN OF CARE EXPIRES ON:: 06/13/17 ORDER # VISITS AND/OR THROUGH DATE: 06/13/17 PLAN: Continue Plan of Care (Continue and progress strength to return patient to PLOF.)
--- NOTE | 2017-05-15 14:58 | RS.OPPTDN ---
Subjective Date of Note: 05/15/17 Visit #: 10 Date of Evaluation: 04/24/17 Payer Source: MEDICARE Treatment Diagnosis: Left knee pain, left knee joint stiffness, s/p left TKA Current Subjective/complaints:: Patient reports continued progress. She reports she has increased soreness and stiffness in the left knee following increased activity while moving this weekend. States she will go back to physician tomorrow for a follow-up and hope to continue for 1 to 2 weeks. She feels like she should be able to return to work at that time. Pain Assessment - Pain Description Pain Location: bilateral knees, left worse than right Current Pain Intensity: mild - Heat/Cryotherapy Treatment: Cryotherapy ([id number] to the left knee prior to EX. Patient in supine. ) Interventions - Exercise/Activities/Manual Therapy Exercises/Activities: QS, ham sets, heel slides, all 2s/10reps. SLR and hip abd with 2#, 2s/10reps each. Green theraband for resistive ankle df and ham curl, 3s /10reps. SAQ increased to 5#, 3s/10reps. Isometric hip add with ball. 3 point quads, 10reps. PROM left knee flexion and extension. Green theraband for hip add and abd in hook-lying 2s/10reps each. In sitting on raised [employer]ode[employer] chair, green theraband for resistive knee flexion. Isometric knee flexion and extension , multiple sets of 5 reps. Stationary bike 5mins(not included in direct time). Has worked on 12" with handrail and CGA. Total minutes of Exercise: 40mins Manual Therapy: NA HOME EXERCISE PROGRAM: AP's, quad sets, heel slides, standing HS curls, SAQ's. SLR. Heel slides in sitting with passive stretching. - Objective Findings Observations,measurements,etc.: Patient demos 117 passive left knee flexion and extension to neutral. Upon discussion of home activities, patient increases LE functional score to 33/80 or 58.75% (was 0/80 on Eval). - Charges Total Direct Minutes: 40mins Total Treatment Time: 55mins Procedures billed for this date of service:: CP, EX3 Assessment: Patient proigressing well with strength, ROM, and functional activity level. Patient would like to continue therapy to gain ability with functional activity level and be able to return to work. Patient Education: Body/Joint mechanics, Home Exercise Program, Home Safety Patient demonstrates compliance with HEP?: Yes Short Term Goals Goal #1: Patient independent and compliant with initial HEP. Goal to be met by: 05/08/17 Progress towards Goal:: Met Goal #2: Left knee active flexion to 90 degrees. Goal to be met by: 05/08/17 (100%) Progress towards Goal:: Met Goal #3: Left knee to demonstrate good quad control. Goal to be met by: 05/08/17 (100%) Progress towards Goal:: Met Goal #4: Pt to demonstrate good heelstrike consistently with amb. in department. Goal to be met by: 05/08/17 (80%) Progress towards Goal:: Progressing Residential Goals Goal #1: Pt knows HEP and to continue ex's to maintain functional level at D/C. Goal to be met by: 06/13/17 Progress towards goal: Progressing Goal #2: Score on LE functional scale <39% impaired. Goal to be met by: 06/13/17 (60%) Progress towards goal: Progressing Comments: 58.75% Goal #3: Pt able to amb. community distances w/o a device and min. gait deviations. Goal to be met by: 06/13/17 (75%) Progress towards goal: Progressing Goal #4: Left knee AROM WFL's for patient to perform all selfcare/ADL's. Goal to be met by: 06/13/17 (75%) Progress towards goal: Progressing Plan PLAN OF CARE EXPIRES ON:: 06/13/17 ORDER # VISITS AND/OR THROUGH DATE: 06/13/17 PLAN: Continue Plan of Care (Continue and progress toward goals and prepare for return to work.)
--- NOTE | 2017-05-17 14:14 | RS.OPPTDN ---
Subjective Date of Note: 05/17/17 Visit #: 11 Date of Evaluation: 04/24/17 Payer Source: MEDICARE Treatment Diagnosis: Left knee pain, left knee joint stiffness, s/p left TKA Current Subjective/complaints:: Patient presents to department with orders to continue therapy. She states she saw the PA and she recommended the patient to be off approx 2 more weeks for healing and strengthening. Pain Assessment - Pain Description Pain Location: bilateral knees, left worse than right Current Pain Intensity: mild - Heat/Cryotherapy Treatment: Cryotherapy ([id number] to the left knee prior to EX. Patient in supine. ) Interventions - Exercise/Activities/Manual Therapy Exercises/Activities: QS, ham sets, heel slides, all 2s/10reps. SLR and hip abd with 2#, 2s/10reps each. Green theraband for resistive ankle df and ham curl, 3s /10reps. Green theraband for hip add and abd in hook-lying, 2s/10reps. SAQ 5#, 3s/10reps. Isometric hip add with ball. 3 point quads, 10reps. PROM left knee flexion and extension. Sitting ABS, isometric knee flexion and extension, multiple sets of 5 reps. 5# for LAQ and hip flexion, 2s/10reps each. Step-up and step-down in 12" step with handrail, over and back 3 times with min to CGA of 1. Stationary bike 10mins(not included in direct time). Total minutes of Exercise: 40mins/50mins Manual Therapy: NA HOME EXERCISE PROGRAM: AP's, quad sets, heel slides, standing HS curls, SAQ's. SLR. Heel slides in sitting with passive stretching. 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 Patient Education: Home Exercise Program, Activity Modification Patient demonstrates compliance with HEP?: Yes Short Term Goals Goal #1: Patient independent and compliant with initial HEP. Goal to be met by: 05/08/17 Progress towards Goal:: Met Goal #2: Left knee active flexion to 90 degrees. Goal to be met by: 05/08/17 (100%) Progress towards Goal:: Met Goal #3: Left knee to demonstrate good quad control. Goal to be met by: 05/08/17 (100%) Progress towards Goal:: Met Goal #4: Pt to demonstrate good heelstrike consistently with amb. in department. Goal to be met by: 05/08/17 (80%) Progress towards Goal:: Progressing Design Agent Goals Goal #1: Pt knows HEP and to continue ex's to maintain functional level at D/C. Goal to be met by: 06/13/17 Progress towards goal: Progressing Goal #2: Score on LE functional scale <39% impaired. Goal to be met by: 06/13/17 (60%) Progress towards goal: Progressing Goal #3: Pt able to amb. community distances w/o a device and min. gait deviations. Goal to be met by: 06/13/17 (75%) Progress towards goal: Progressing Goal #4: Left knee AROM WFL's for patient to perform all selfcare/ADL's. Goal to be met by: 06/13/17 (75%) Progress towards goal: Progressing Plan PLAN OF CARE EXPIRES ON:: 06/13/17 ORDER # VISITS AND/OR THROUGH DATE: 06/13/17 PLAN: Continue Plan of Care
--- NOTE | 2017-05-19 09:43 | RS.PTSUM ---
Progress Note/Summary Date of Note: 05/15/17 Date of Evaluation: 04/24/17 Number of Visits: 10 Reporting Period for this Progress Note: 04/24/17 through 05/15/17 Current Complaints/Gains: Patient reports doing much better. She would like to continue therapy 1-2 times a week then return to work. 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 Objective Measurements/Presentation: Passive knee flexion 117 degrees and extension to neutral. MMT demonstrates 4+/5. Patient is independent with basic TKA HEP. Performs step-ups and step downs to and from a 12 inch step in department using a handrail and with CGA of one. G Codes: Mob current CK. Mob goal CJ Source of G Code Score: LE functional scale, score of 33/80=58.75%. - Short Term Goals Goal #1: Patient independent and compliant with initial HEP. Goal to be met by: 05/08/17 Progress towards Goal:: Met Goal #2: Left knee active flexion to 90 degrees. Goal to be met by: 05/08/17 (100%) Progress towards Goal:: Met Goal #3: Left knee to demonstrate good quad control. Goal to be met by: 05/08/17 (100%) Progress towards Goal:: Met Goal #4: Pt to demonstrate good heelstrike consistently with amb. in department. Goal to be met by: 05/08/17 (80%) Progress towards Goal:: Progressing - Sound Effects Manager Goals Goal #1: Pt knows HEP and to continue ex's to maintain functional level at D/C. Goal to be met by: 06/13/17 Progress towards goal: Progressing Goal #2: Score on LE functional scale <39% impaired. Goal to be met by: 06/13/17 (60%) Progress towards goal: Progressing Goal #3: Pt able to amb. community distances w/o a device and min. gait deviations. Goal to be met by: 06/13/17 (75%) Progress towards goal: Progressing Goal #4: Left knee AROM WFL's for patient to perform all selfcare/ADL's. Goal to be met by: 06/13/17 Progress towards goal: Met - Assessment Assessment of Improvement/Progress: Patient with functional active knee ROM. She needs more strengthening and ability to ascend/descend 12 inch step on the school bus to return to work. She will benefit from progressed strengthening and functional activites recreating step height to prepare her to return to work. Summary: Patient has made progress towards goals., Patient demonstrates potential to gain increased function with therapy, Maximum potential has yet to be attained. - Plan Plan: Continue Plan of Care PLAN OF CARE EXPIRES ON:: 06/13/17 ORDER # VISITS AND/OR THROUGH DATE: 06/13/17 Continue Therapy - Short Term Goals Goal #1: Patient independent and compliant with initial HEP. Goal to be met by: 06/02/17 Goal #2: Left knee active flexion to 90 degrees. Goal to be met by: 05/08/17 (100%) Goal #3: Left knee to demonstrate good quad control. Goal to be met by: 05/08/17 (100%) Goal #4: Pt to demonstrate good heelstrike consistently with amb. in department. Goal to be met by: 06/02/17 (80%) - Sound Effects Manager Goals Goal #1: Pt knows HEP and to continue ex's to maintain functional level at D/C. Goal to be met by: 06/13/17 Goal #2: Score on LE functional scale <39% impaired. Goal to be met by: 06/13/17 (60%) Goal #3: Pt able to amb. community distances w/o a device and min. gait deviations. Goal to be met by: 06/13/17 (75%) Goal #4: Pt to ascend/descend ~12 inch step w/ rail independently. Goal to be met by: 06/13/17
--- NOTE | 2017-05-19 14:45 | RS.OPPTDN ---
Subjective Date of Note: 05/19/17 Visit #: 12 Date of Evaluation: 04/24/17 Payer Source: MEDICARE Treatment Diagnosis: Left knee pain, left knee joint stiffness, s/p left TKA Current Subjective/complaints:: Patient reports increased stiffness left knee and continued use of cane in public for safety. States she feels like she did better on high step today. She is hopeful she will be able to return to work on May 29 as planned. Pain Assessment - Pain Description Pain Location: bilateral knees, left worse than right Current Pain Intensity: mild - Heat/Cryotherapy Treatment: Cryotherapy ([id number] to the left knee prior to EX. Patient in supine. ) Interventions - Exercise/Activities/Manual Therapy Exercises/Activities: SLR and hip abd with 2#, 2s/10reps each. Green theraband for resistive ankle df and ham curl, 3s/10reps. Green theraband for hip add and abd in hook-lying, 2s/10reps. SAQ 5#, 3s/10reps. Isometric hip add with ball. Added 2# to 3 point quads, 10reps. PROM left knee flexion and extension. Sitting , 5# for LAQ and hip flexion, 2s/10reps each. Green theraband for ham curl. Step-up and step-down in 12" step with handrail, over and back 4 times with min to CGA of 1. Standing toe-ups, mini-squat, and alt hip abduction. Stationary bike 15mins(not included in direct time). Total minutes of Exercise: 40mins/55mins Manual Therapy: NA HOME EXERCISE PROGRAM: AP's, quad sets, heel slides, standing HS curls, SAQ's. SLR. Heel slides in sitting with passive stretching. - Charges Total Direct Minutes: 40mins Total Treatment Time: 70mins Procedures billed for this date of service:: CP, EX3 Assessment: Patient progressing well with strengthening to return to work. Patient Education: Home Exercise Program Patient demonstrates compliance with HEP?: Yes Short Term Goals Goal #1: Patient independent and compliant with initial HEP. Goal to be met by: 06/02/17 Progress towards Goal:: Met Goal #2: Left knee active flexion to 90 degrees. Goal to be met by: 05/08/17 (100%) Progress towards Goal:: Met Goal #3: Left knee to demonstrate good quad control. Goal to be met by: 05/08/17 (100%) Progress towards Goal:: Met Goal #4: Pt to demonstrate good heelstrike consistently with amb. in department. Goal to be met by: 06/02/17 (80%) Progress towards Goal:: Progressing Wafer Cleaner Goals Goal #1: Pt knows HEP and to continue ex's to maintain functional level at D/C. Goal to be met by: 06/13/17 Progress towards goal: Progressing Goal #2: Score on LE functional scale <39% impaired. Goal to be met by: 06/13/17 (60%) Progress towards goal: Progressing Goal #3: Pt able to amb. community distances w/o a device and min. gait deviations. Goal to be met by: 06/13/17 (75%) Progress towards goal: Progressing Goal #4: Pt to ascend/descend ~12 inch step w/ rail independently. Goal to be met by: 06/13/17 Progress towards goal: Progressing (Performs with min to CGA+1) Plan PLAN OF CARE EXPIRES ON:: 06/13/17 ORDER # VISITS AND/OR THROUGH DATE: 06/13/17 PLAN: Continue Plan of Care
--- NOTE | 2017-05-23 14:24 | RS.OPPTDN ---
Subjective Date of Note: 05/23/17 Visit #: 13 Date of Evaluation: 04/24/17 Payer Source: MEDICARE Treatment Diagnosis: Left knee pain, left knee joint stiffness, s/p left TKA Current Subjective/complaints:: Patient presents to department with increased redness, swelling and light drainage at the top of the incision line. Patient states she has contacted PCP office and was advised to contact surgeon. She agrees to call office when she gets home. Agrees to stop early due to discomfort and need to contact physicians office. Pain Assessment - Pain Description Pain Location: bilateral knees, left worse than right Current Pain Intensity: mod with end range stretch - Heat/Cryotherapy Treatment: Cryotherapy ([id number] to the left knee prior to EX. Pa) Interventions - Exercise/Activities/Manual Therapy Exercises/Activities: SLR and hip abd with 2#, 2s/10reps each. Green theraband for resistive ankle df and ham curl, 3s/10reps. SAQ 5#, 3s/10reps. Isometric hip add with ball. Decreased to 1# for 3 point quads, 10reps. PROM left knee flexion and extension. Stopped exercises due to patient being concerned about redness at incision line and discomfort at end range flexion. Total minutes of Exercise: 12mins Manual Therapy: NA HOME EXERCISE PROGRAM: AP's, quad sets, heel slides, standing HS curls, SAQ's. SLR. Heel slides in sitting with passive stretching. - Objective Findings Observations,measurements,etc.: Patient presents with redness, swelling, and slight drainage at the upper incision line. Area of redness approx 1 1/2 inches long and 1 inch wide. Contacted surgeons office by phone and left voicemail. - Charges Total Direct Minutes: 27mins Total Treatment Time: 27mins Procedures billed for this date of service:: CP, EX Assessment: Hold exercise at this time, with patient to contact physicians office and be shceduled for office visit. Short Term Goals Goal #1: Patient independent and compliant with initial HEP. Goal to be met by: 06/02/17 Progress towards Goal:: Met Goal #2: Left knee active flexion to 90 degrees. Goal to be met by: 05/08/17 (100%) Progress towards Goal:: Met Goal #3: Left knee to demonstrate good quad control. Goal to be met by: 05/08/17 (100%) Progress towards Goal:: Met Goal #4: Pt to demonstrate good heelstrike consistently with amb. in department. Goal to be met by: 06/02/17 (80%) Progress towards Goal:: Progressing Costume Design Teacher Goals Goal #1: Pt knows HEP and to continue ex's to maintain functional level at D/C. Goal to be met by: 06/13/17 Progress towards goal: Progressing Goal #2: Score on LE functional scale <39% impaired. Goal to be met by: 06/13/17 (60%) Progress towards goal: Progressing Goal #3: Pt able to amb. community distances w/o a device and min. gait deviations. Goal to be met by: 06/13/17 (75%) Progress towards goal: Progressing Goal #4: Pt to ascend/descend ~12 inch step w/ rail independently. Goal to be met by: 06/13/17 Progress towards goal: Progressing (Performs with min to CGA+1) Plan PLAN OF CARE EXPIRES ON:: 06/13/17 ORDER # VISITS AND/OR THROUGH DATE: 06/13/17 PLAN: Hold (Will hold until patient is able to be seen by physician.)
--- NOTE | 2017-05-24 08:32 | RS.CSNOTE ---
PT Case Note Date of Note: 05/24/17 Title of document: Hold Note: Patient calls to hold appointment today. States she was started on an antibiotic for inflammed area at the upper incision line of the left knee. She will see her physician tomorrow for assessment and call to reschedule therapy at that time.
== END 2017-06-01 ==
PROVIDERS: ATTEND Orthopaedic Surgery
DX: Z96.652 Presence of left artificial knee joint (principal); M25.562 Pain in left knee

== ENCOUNTER 2017-06-12 10:00 | Outpatient (RCR) ==
--- NOTE | 2017-06-07 13:36 | RS.OPPTDN ---
Subjective Date of Note: 06/07/17 Visit #: 14 Date of Evaluation: 04/24/17 Payer Source: MEDICARE Treatment Diagnosis: Left knee pain, left knee joint stiffness, s/p left TKA Current Subjective/complaints:: Patient says she is feeling much better after being treated for infection. She says she returns to her MD next month. 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 She says she did take Lortab before coming in today, but is planning to decrease her frequency of them. Asks if she can use Biofreeze to the back of her knee due to hx of Myers's cyst. Pain Assessment - Pain Description Pain Location: bilateral knees, left worse than right Current Pain Intensity: does not rate, but says "It's not too bad." - Heat/Cryotherapy Treatment: Cryotherapy (15 mins to the L knee prior to therex in supine) Interventions - Exercise/Activities/Manual Therapy Exercises/Activities: QS 2x10. SLR and hip abd with 1# (decreased due to time away from PT and extension lag), 2s/10reps each. Green theraband for resistive ankle df and ham curl, 3s/10reps. SAQ 5#, 3s/10reps. Isometric hip add with ball. Green tband for hip abd/add with knee in extension 2/10. PROM left knee flexion and extension. Standing: ham curls, hip abd, hip flexion all with 1#, heel raises x 10. Stopped hip flexion after 2 reps due to causing increased pain to knee. Patient ambulates throughout department without cane, but from car to dept she uses SC. Total minutes of Exercise: 30 Manual Therapy: NA HOME EXERCISE PROGRAM: AP's, quad sets, heel slides, standing HS curls, SAQ's. SLR. Heel slides in sitting with passive stretching. - Charges Total Direct Minutes: 30 Total Treatment Time: 50 Procedures billed for this date of service:: monica, ex2 Assessment: Patient has been treated for infection to the L knee, therefore redness has lessened and incision has closed. She has less pain, but has c/o tightness and soreness to the posterior knee related to hx of Bakers cyst. She could apply Biofreeze to this area, but discouraged the anterior portion of the knee. Patient able to perform previous routine of therex with needing weights adjusted as it was too much today for her and began to compensate for the resistance. Once modified, it was performed normally. SC is recommended during ambulation as she is not able to ambulate with as much weight to the L LE and is more unsteady. Patient Education: Education of diagnosis, Body/Joint mechanics, Home Exercise Program, Home Safety, Activity Modification, Education of Plan of Care Patient demonstrates compliance with HEP?: Yes Short Term Goals Goal #1: Patient independent and compliant with initial HEP. Goal to be met by: 06/02/17 Progress towards Goal:: Met Goal #2: Left knee active flexion to 90 degrees. Goal to be met by: 05/08/17 (100%) Progress towards Goal:: Met Goal #3: Left knee to demonstrate good quad control. Goal to be met by: 05/08/17 (100%) Progress towards Goal:: Met Goal #4: Pt to demonstrate good heelstrike consistently with amb. in department. Goal to be met by: 06/02/17 (80%) Progress towards Goal:: Progressing Senior Living Goals Goal #1: Pt knows HEP and to continue ex's to maintain functional level at D/C. Goal to be met by: 06/13/17 Progress towards goal: Progressing Goal #2: Score on LE functional scale <39% impaired. Goal to be met by: 06/13/17 (60%) Progress towards goal: Progressing Goal #3: Pt able to amb. community distances w/o a device and min. gait deviations. Goal to be met by: 06/13/17 (75%) Progress towards goal: Progressing Goal #4: Pt to ascend/descend ~12 inch step w/ rail independently. Goal to be met by: 06/13/17 Progress towards goal: Progressing (Performs with min to CGA+1) Plan PLAN OF CARE EXPIRES ON:: 06/13/17 ORDER # VISITS AND/OR THROUGH DATE: 06/13/17 PLAN: Progress Exercises
--- NOTE | 2017-06-09 13:20 | RS.OPPTDN ---
Subjective Date of Note: 06/09/17 Visit #: 15 Date of Evaluation: 04/24/17 Payer Source: MEDICARE Treatment Diagnosis: Left knee pain, left knee joint stiffness, s/p left TKA Current Subjective/complaints:: Reports increased muscle soreness left quad since last session. States she using cane again for safety due to discomfort. States she feels she lost strength and ROM while off of therapy and taking antibiotics. Pain Assessment - Pain Description Pain Location: bilateral knees, left worse than right Current Pain Intensity: mild to mod today - Heat/Cryotherapy Treatment: Hot Pack ([id number] to the left quad prior to EX. Patient in supine. ) Interventions - Exercise/Activities/Manual Therapy Exercises/Activities: QS, SLR and hip abd no weights. Green theraband for resistive ankle df and ham curl, 3s/10reps. SAQ 5#, 3s/10reps. Isometric hip add with ball. Green tband for hip abd/add in hook-lying today. PROM left knee flexion and extension. Standing, ham curls and hip abd, no weights. Sitting, green theraband for ham curl. PROM of left knee and ham stretch. Ended with stationary bike for ROM 3mins (not included in direct time). Total minutes of Exercise: 30mins Manual Therapy: NA HOME EXERCISE PROGRAM: AP's, quad sets, heel slides, standing HS curls, SAQ's. SLR. Heel slides in sitting with passive stretching. - Objective Findings Observations,measurements,etc.: Passive left knee flexion to approx 115 degrees - Charges Total Direct Minutes: 30mins Total Treatment Time: 45mins Procedures billed for this date of service:: HP, EX2 Assessment: Patient demos a slight decrease in ROM. Will need to progress exericse to return to PLOF. Patient Education: Home Exercise Program Patient demonstrates compliance with HEP?: Yes Short Term Goals Goal #1: Patient independent and compliant with initial HEP. Goal to be met by: 06/02/17 Progress towards Goal:: Met Goal #2: Left knee active flexion to 90 degrees. Goal to be met by: 05/08/17 (100%) Progress towards Goal:: Met Goal #3: Left knee to demonstrate good quad control. Goal to be met by: 05/08/17 (100%) Progress towards Goal:: Met Goal #4: Pt to demonstrate good heelstrike consistently with amb. in department. Goal to be met by: 06/02/17 (80%) Progress towards Goal:: Progressing Supervisor Tower Goals Goal #1: Pt knows HEP and to continue ex's to maintain functional level at D/C. Goal to be met by: 06/13/17 Progress towards goal: Progressing Goal #2: Score on LE functional scale <39% impaired. Goal to be met by: 06/13/17 (60%) Progress towards goal: Progressing Goal #3: Pt able to amb. community distances w/o a device and min. gait deviations. Goal to be met by: 06/13/17 (75%) Progress towards goal: Progressing Goal #4: Pt to ascend/descend ~12 inch step w/ rail independently. Goal to be met by: 06/13/17 Progress towards goal: Progressing (Performs with min to CGA+1) Plan PLAN OF CARE EXPIRES ON:: 06/13/17 ORDER # VISITS AND/OR THROUGH DATE: 06/13/17 PLAN: Continue Plan of Care (Continue and progress ROM and strengthening of the left LE to increase functional activity level.)
--- NOTE | 2017-06-12 15:07 | RS.OPPTDN ---
Subjective Date of Note: 06/12/17 Visit #: 16 Date of Evaluation: 04/24/17 Payer Source: MEDICARE Treatment Diagnosis: Left knee pain, left knee joint stiffness, s/p left TKA Current Subjective/complaints:: Patient reports improvement in left knee flexibility over the weekend. She states infection and swelling hurt her ROM, but is progressing again. 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 Pain Assessment - Pain Description Pain Location: bilateral knees, left worse than right Current Pain Intensity: mild to mod today - Heat/Cryotherapy Treatment: Hot Pack ([id number] to the left knee prior to EX. Patient in supine. ) Interventions - Exercise/Activities/Manual Therapy Exercises/Activities: QS, SLR and hip abd no weights. Green theraband for resistive ankle df and ham curl, 3s/10reps. SAQ 4#, 3s/10reps. Isometric hip add with ball. Green tband for hip abd/add with knee full extension, 2s/10reps each. PROM left knee flexion and extension. Standing, ham curls and hip abd, no weights. Sitting, green theraband for ham curl. PROM of left knee and ham stretch. Step-ups/downs on 12" step Ended with stationary bike for ROM 10mins ( not included in direct time). Total minutes of Exercise: 30mins/40mins Manual Therapy: NA HOME EXERCISE PROGRAM: AP's, quad sets, heel slides, standing HS curls, SAQ's. SLR. Heel slides in sitting with passive stretching. - Objective Findings Observations,measurements,etc.: Passive left knee flexion increased to approx 120 degrees today. Demos full extension. - Charges Total Direct Minutes: 30mins Total Treatment Time: 60mins Procedures billed for this date of service:: HP, EX2 Assessment: Patient has demonstrated improvement in ROM and strength of the left LE. She is able to perform light daily activites at home and work. She is also ambulating without assistive device and can go up and down 12" step. She is able to perform basic HEP. Patient Education: Home Exercise Program, Home Safety Patient demonstrates compliance with HEP?: Yes Short Term Goals Goal #1: Patient independent and compliant with initial HEP. Goal to be met by: 06/02/17 Progress towards Goal:: Met Goal #2: Left knee active flexion to 90 degrees. Goal to be met by: 05/08/17 (100%) Progress towards Goal:: Met Goal #3: Left knee to demonstrate good quad control. Goal to be met by: 05/08/17 (100%) Progress towards Goal:: Met Goal #4: Pt to demonstrate good heelstrike consistently with amb. in department. Goal to be met by: 06/02/17 (100%) Progress towards Goal:: Met Cloth Drier Goals Goal #1: Pt knows HEP and to continue ex's to maintain functional level at D/C. Goal to be met by: 06/13/17 (100%) Progress towards goal: Met Goal #2: Score on LE functional scale <39% impaired. Goal to be met by: 06/13/17 (65%) Progress towards goal: Progressing Goal #3: Pt able to amb. community distances w/o a device and min. gait deviations. Goal to be met by: 06/13/17 (100%) Progress towards goal: Met Goal #4: Pt to ascend/descend ~12 inch step w/ rail independently. Goal to be met by: 06/13/17 (100%) Progress towards goal: Met Plan PLAN OF CARE EXPIRES ON:: 06/13/17 ORDER # VISITS AND/OR THROUGH DATE: 06/13/17 PLAN: Plan for Discharge (Discharge with HEP due to end of POC.)
== END 2017-07-01 ==
PROVIDERS: ATTEND Orthopaedic Surgery
DX: Z96.652 Presence of left artificial knee joint (principal)

== ENCOUNTER 2017-10-04 06:59 | Day surgery (SDC) ==
[2017-10-04] MEDS ORDERED: NEO-SYNEPHRINE OT PRN (07:25)
[2017-10-04] MEDS ORDERED: CORTISPORIN OTIC SUSP OT PRN (07:25)
[2017-10-04] MEDS ORDERED: DIPRIVAN 20 ML VIAL IVP ONE (10:25)
[2017-10-04] MEDS ORDERED: VERSED ONE (10:25)
[2017-10-04] MEDS ORDERED: SUBLIMAZE ONE (10:25)
[2017-10-04] MEDS ORDERED: LIDOCAINE 1%-EPI 1:100,000 20 ML MDV INJ STA (10:37)
[2017-10-04] MEDS ORDERED: NEOSPORIN OINT 0.9 GM PACKET TP STA (10:42)
[2017-10-04] MEDS ORDERED: GELFOAM SIZE 50 TP STA (10:47)
[2017-10-04 12:51] VITALS: BP 115/61; TEMP 97.8
--- NOTE | 2017-10-06 10:43 | OP ---
PREOPERATIVE DIAGNOSIS: RIGHT TYMPANIC MEMBRANE PERFORATION. POSTOPERATIVE DIAGNOSIS: RIGHT TYMPANIC MEMBRANE PERFORATION. OPERATION: RIGHT TYPE 1 TYMPANOPLASTY. DESCRIPTION OF PROCEDURE: The patient was taken to surgery, placed on the table and general anesthesia was administered. The right ear was prepped and draped in the usual manner. 1 % Xylocaine to 1:100,000 Epinephrine was injected in the external ear canal. Xylocaine and Epinephrine was injected into the tragus. A tragal perichondrial graft was obtained. The graft site was closed after the cartilage was placed back in the tragus enclosed using 6-0 Chromic suture. The perforation was straightened up with a straight pick and then a tympanomeatal flap was created between 6 and 12 o'clock. Dissection was carried down to the annulus and annulus was elevated. The middle ear was filled with pledget of Gelfoam. The perichondrial graft was cut to proper size and laid on the tympanic membrane. The tympanic membrane was placed back in it's anatomical position. Gelfoam was placed against the surface of the drum prior to that a small myringotomy site was inserted in the eat drum itself then the ear drum will filled with Gelfoam with antibiotic ointment and the patient was then extubated and return to the recovery room in satisfactory condition. The patient was extubated and returned to the recovery room in satisfactory condition. RAVINDER
== END 2017-10-04 12:22 | disposition home or self-care (01) ==
LOC: SURG 06:59
PROVIDERS: ATTEND Otolaryngology
DX: H72.91 Unspecified perforation of tympanic membrane, right ear (principal)

== ENCOUNTER 2017-12-13 10:00 | Outpatient (CLI) | END 2017-12-13 10:01 | disposition left against medical advice (07) | LOC: AMBL 10:00 | PROVIDERS: ATTEND Internal Medicine | DX: Z04.1 Encounter for examination and observation following transport accident (principal); V43.92XA Unspecified car occupant injured in collision with other type car in traffic accident, initial encounter ==

== ENCOUNTER 2018-03-06 14:01 | Outpatient (CLI) | payer OTHER | END 2018-03-06 14:02 | disposition home or self-care (01) | LOC: LAB 14:01 | PROVIDERS: ATTEND Otolaryngology | DX: H92.11 Otorrhea, right ear (principal) | CPT/HCPCS: 87070; 87186 ==

== ENCOUNTER 2018-05-03 13:01 | Outpatient (CLI) ==
--- NOTE | 2018-05-03 13:57 | CT ---
EXAM: CT BRAIN HISTORY: Headache TECHNIQUE: CT brain without intravenous contrast. 5-mm axial sections with Reformations. COMPARISON: FINDINGS: Brain is unremarkable without evidence of hemorrhage or large vessel distribution recent ischemic in farction. There is no suggestion of acute hydrocephalus or subdural fluid collection. No mass or ma ss effect. Cranium is within normal limits. Mastoid processes are aerated. The visualized paranasal sinuses a re clear. IMPRESSION: No acute intracranial process.
--- NOTE | 2018-05-03 13:58 | CT ---
Exam: CT of the cervical spine without intravenous contrast. Comparison: None available. Reason for exam: Neck pain. FINDINGS: No vertebral body height loss is seen. There is a grade 1 anterolisthesis of C3 on C4. T here is straightening of the cervical lordotic curve with mild to moderate multilevel degenerative di sease with intervertebral body disc space height loss and facet hypertrophy with ligamentous calcific ation and osteophyte formation. IMPRESSION: 1. No obvious vertebral body height loss is seen. 2. Grade 1 anterior listhesis of C3 on C4 with multilevel degenerative disease and straightening of the cervical lordotic curve. If clinical concern exists for radiculopathy or myelopathy, MRI may be performed.
== END 2018-05-03 13:02 | disposition home or self-care (01) ==
LOC: RAD 13:01
PROVIDERS: ATTEND Family Medicine
DX: M54.2 Cervicalgia (principal); G44.209 Tension-type headache, unspecified, not intractable

== ENCOUNTER 2018-05-30 10:45 | Outpatient (CLI) | payer OTHER ==
--- NOTE | 2018-05-31 22:50 | MRI ---
EXAM: Lumbar spine MRI without contrast. HISTORY: Acute pain. COMPARISON: Chest radiograph 10/27/2016. TECHNIQUE: Multiplanar, multisequence MR images were acquired of the lumbar spine without contrast. FINDINGS: Conus medullaris ends at T12-L1 and has normal morphology and signal intensity. There is mild reverse S thoracolumbar scoliosis, convex left at L1-2 and convex right at L4-5. There is mild chronic left lateral wedging of L4. No acute compression fractures are present. Intrinsic bone mary ow signal is heterogeneous. There is desiccation of the lumbar intervertebral discs. At L1-2, there is moderate disc space narrowing with endplate irregularity and paracentral intradiskal bright STIR signal that may represent edema or residual hydration and vacuum phenomenon. At L2-3, there is osteo phytosis with moderate to marked right disc space narrowing and moderate endplate irregularity with s mall chronic Schmorl's nodes. A small chronic Schmorl's node is present along the L3 inferior endpla te. At L4-5, there is a diffuse disc osteophyte complex that is asymmetric left with marked disc spa ce narrowing, mild endplate irregularity and a tiny chronic Schmorl's node along the L4 inferior endp late. The partially visualized liver and left kidney are unremarkable. A small simple right renal cyst is present. The aorta is mildly ectatic. T11-12: There is minor kyphosis at T11-12 due to mild chronic anterior wedging of the T11 and T12 ve rtebra. There is a minor posterior disc osteophyte complex and small central disc protrusion which e ffaces the ventral thecal sac and is associated with minor ventral cord flattening although cerebrosp inal fluid is preserved around the cord. There is no central canal stenosis or foraminal stenosis. AP diameter of the thecal sac is 9.9 mm. T12-L1: There is a mild diffuse disc bulge without central canal stenosis. Neural foramina are pyle nt. L1-2: There is a minor disc bulge and a small to moderate disc extrusion that extends from the left paracentral margin of the disc to the right posterolateral margin of the disc. Mild bilateral hypert rophic facet arthropathy and ligamentum flavum hypertrophy is present. There is a prominent osteophy te along the anterior right facet joint. This causes severe stenosis at the entry to the right neura l foramen with compression of the right L1 nerve. There is no central canal stenosis. L2-3: There is a dorsal spondylotic ridge that is asymmetric to the right with a probable small righ t posterolateral disc protrusion and small to moderate right anterolateral endplate osteophytes. Mod erate bilateral hypertrophic facet arthropathy and ligamentum flavum hypertrophy is present. There i s right lateral recess stenosis with possible encroachment on the right L3 nerve roots and mild to mo derate right neural foraminal stenosis. There is no central canal stenosis. L3-4: There is a minor disc bulge that is asymmetric to the right which minimally narrows the inferi or right neural foramen. Moderate bilateral hypertrophic facet arthropathy and ligamentum flavum hype rtrophy is present. There is minor right neural foraminal stenosis. No central canal stenosis is pre sent. L4-5: There is a diffuse spondylotic ridge that is asymmetric to the left which encroaches on both L 4 nerves exiting the neural foramina, greater on the left. There is a small broad-based superimposed central disc protrusion and probable annular calcification/ossification that effaces the ventral the yessica sac and contacts the anteromedial L5 nerve roots bilaterally. Mild bilateral facet and ligamentu m flavum hypertrophy is present. There is minor right and mild to moderate left neural foraminal tate nosis. L5-S1: There is a minor left posterior disc osteophyte complex and a small left posterolateral disc protrusion that compresses the left S1 nerve. Mild left hypertrophic facet arthropathy is present. There is hypoplasia of the right facet joint. There is no central canal stenosis or foraminal stenos is. IMPRESSION: 1. Mild reverse S thoracolumbar scoliosis convex left at L1-2 and convex right at L4-5. 2. Moderate lumbar degenerative spondylosis without spinal stenosis. 3. Small disc herniations T11-12, L4-5 and L5-S1 and small to moderate disc herniation L1-2. 4. Severe right L1-2, mild to moderate right L2-3 and mild to moderate left L4-[address] enosis.
== END 2018-05-30 10:46 | disposition home or self-care (01) ==
LOC: RAD 10:45
PROVIDERS: ATTEND Family Medicine
DX: M54.5 Low back pain (principal)